=== PATIENT | male | born 1995 | race Two or more races ===

== ENCOUNTER 2022-02-25 19:10 | Emergency (ER) | payer SELFPAY ==
[2022-02-25 23:11] LABS: C. TRACHOMATIS BY PCR DETECTED; N. GONORRHOEAE BY PCR NOT DETECTED
[2022-02-25] MEDS ORDERED: cefTRIAXone 250 MG, Lidocaine 1% 0.5 ML IM SCH ×2 (23:45)
[2022-02-25] MEDS ORDERED: Azithromycin 250 MG Tab PO ONE (23:59)
== END 2022-02-26 00:35 | disposition home or self-care (01) ==
LOC: JD.ED 19:10
DX: A74.9 Chlamydial infection, unspecified (principal); Z72.0 Tobacco use
CPT/HCPCS: 81001; 87491; 87591; 96372; 99283; A9270; J0696

== ENCOUNTER 2024-05-25 06:20 | Day surgery (SDC) | payer BC ==
[2024-05-25] MEDS: Lactated Ringers 1,000 ML IV SCH (06:40)
[2024-05-25] MEDS ORDERED: Lidocaine 1% 4 ML ONE (06:53)
[2024-05-25] MEDS ORDERED: Midazolam 1 MG/ML 2 ML SDV ONE (06:53)
[2024-05-25] MEDS ORDERED: Propofol 200 MG/20 ML SDV ONE ×3 (06:53)
[2024-05-25] MEDS ORDERED: Sodium Chloride 0.9% 10 ML Syringe FLUSH SCH (07:00)
[2024-05-25] MEDS ORDERED: Sodium Chloride 0.9% 10 ML Syringe FLUSH PRN (07:00)
== END 2024-05-25 08:35 | disposition home or self-care (01) ==
LOC: JD.SDS 06:20
PROVIDERS: ATTEND Surgery
DX: K62.5 Hemorrhage of anus and rectum (principal); K42.9 Umbilical hernia without obstruction or gangrene; K60.2 Anal fissure, unspecified; K21.9 Gastro-esophageal reflux disease without esophagitis; F32.A Depression, unspecified; F41.1 Generalized anxiety disorder; F41.0 Panic disorder [episodic paroxysmal anxiety]; Z87.891 Personal history of nicotine dependence; Z79.899 Other long term (current) drug therapy
CPT/HCPCS: 45378; J2250; J2704; J7120; J3490